=== PATIENT | female | born 1995 | race Caucasian/White ===

== ENCOUNTER 2025-06-11 10:42 | Emergency (ER) | payer BC, SELFPAY ==
--- NOTE | 2025-06-11 10:44 | ED.URI ---
HPI - URI/Sore Throat General Chief Complaint: Upper Respiratory Infection Stated Complaint: sinus infection Time Seen by Provider: 06/11/25 10:44 Source: patient Mode of arrival: ambulatory Limitations: no limitations History of Present Illness HPI Narrative: Patient is a 29-year-old female who presents with 9 days of sinus congestion, sinus pressure, flus nasal drainage, sore throat, cough. Patient has taken DayQuil. Denies any fever, chills, nausea, vomiting, diarrhea. Does not take any allergy medicine daily. Related Data Home Medications ?Medication ?Instructions ?Recorded ?Confirmed ?Last Taken ?Type sertraline 50 mg tablet mg 06/11/25 Unknown History Allergies Allergy/AdvReac Type Severity Reaction Status Date / Time No Known Allergies Allergy Verified 06/11/25 10:46 Review of Systems Review of Systems: All systems reviewed & are unremarkable except as noted in HPI and below Constitutional: Constitutional: Denies chills, Denies fatigue, Denies fever(s), Denies headache(s), Denies malaise and Denies weakness Eyes: Eyes: Denies blurry vision, Denies itchy eyes and Denies loss of vision ENT: Denies otalgia, Denies headache(s), Reports nasal congestion, Reports sinus pain, Reports sinus pressure and Reports sore throat Cardiovascular: Cardiovascular: Denies chest pain, Denies irregular heart rhythm and Denies dyspnea Respiratory: Respiratory: Reports cough and Denies dyspnea Gastrointestinal: Gastrointestinal: Denies abdominal pain, Denies diarrhea, Denies nausea and Denies vomiting Musculoskeletal: Musculoskeletal: Denies back pain, Denies myalgias and Denies arthralgias Integumentary/Breasts: Skin/Breast: Denies pruritus and Denies rash Neurologic: Denies headache(s), Denies loss of vision and Denies weakness Psychiatric: Psychiatric: Reports no additional psychiatric complaints Endocrine: Endocrine: Denies fatigue Allergic/Immunologic: Allergic/Immunologic: Denies itchy eyes PMFSH Comments At time of signature, agree with nursing past medical, surgical, social and family history. There is no relevant family history pertinent to the presenting complaint. Exam Const: General: cooperative, healthy appearing, comfortable, no acute distress and well nourished Nutritional Appearance: well nourished Orientation/consciousness: patient oriented x3 Limitations: no limitations HENMT: Head: normal to inspection, normocephalic and atraumatic Ears: hearing grossly normal bilaterally, external ears normal, TM's normal bilaterally, EAC's normal and no periauricular adenopathy Face/Nose/Sinus: Normal external nose present, Abnormal mucous membranes and turbinates present erythematous bilateral and diffuse, normal facial exam, face symmetric and Facial tenderness on exam of face and sinuses Face and sinus: normal facial exam, face symmetric and sinus tenderness maxillary Mouth: Yes Normal oral and palatal mucosa present, Yes lip normal, Yes tongue normal, Yes Normal salivary glands and ducts present, Yes oropharynx normal and Yes moist mucous membranes Teeth and gingiva: dentition normal Throat: tonsils normal, uvula midline, posterior oropharynx abnormal erythema and postnasal drainage Eyes: General: appearance normal, both eyes and all related structures Alignment and Position: alignment normal and position normal Periorbital: periorbital findings normal Eyelids: eyelids normal Pupils: Equal, round and reactive pupils present Neck: Neck: normal visual inspection, full ROM, no lymphadenopathy and supple Chest: Chest palpation & inspection: normal inspection of the chest and normal palpation of entire chest wall Resp: Effort & Inspection: normal respiratory effort and able to speak in complete sentences Auscultation: clear to auscultation bilaterally, no crackles, no rales, no rhonchi and no wheezes Cardio: Rate: regular rate Rhythm: regular rhythm Heart sounds: S1 normal heart sound present and S2 normal heart sound present GI: Inspection: normal to inspection Skin: General skin exam: normal color and no rashes or lesions noted Neuro: General: patient oriented x3 and moves all extremities Cranial nerves: Yes Equal, round and reactive pupils present Speech: normal speech Gait exam (Neuro): Normal gait present Extrem: General: normal to inspection, full ROM and no edema Psych: Appearance: grossly normal and well kempt Mental Status: mental status grossly normal Speech and movement: Normal speech and movement present Affect: normal affect Attitude: cooperative Thought process: Normal thought process present Course Course Emergency Course: Discharge instructions reviewed with patient, as well as provided in writing per nursing staff. The instructions also include specific and strict return/GO TO THE ER as well as f/u information. All questions have been answered, and the patient deny any further questions with discharge and discharge plan. Portions of this record may have been created with voice recognition software Level of Care: Express Care Visit Vital Signs Vital signs: Reviewed MDM - URI/Sore Throat MDM Narrative Medical decision making narrative: Pt well hydrated appearing, in no respiratory distress, hemodynamically stable. Recommend supportive care. The patient is stable at time of discharge the clinical impression was discussed and the patient was given the opportunity to ask questions, which were addressed as completely as possible given the information available at present. Anticipatory guidance and return to care precautions were discussed and the importance of primary care follow-up was stressed and encouraged. The patient voiced understanding of the plan, indications to return, and the need for follow-up. Exam findings show no acute concerns or changes Patient is appropriate for outpatient treatment and follow-up. Differential diagnosis considered: He virus, strep pharyngitis, allergic rhinitis, upper respiratory tract infection, sinusitis, rhinosinusitis, nasopharyngitis. viral pharyngitis, otitis media, otitis externa, otitis effusion, foreign body, cerumen impaction, viral syndrome, and influenza.? Discharge Plan Discharge Clinical Impression: Sinusitis Qualifiers: Sinusitis location: maxillary Chronicity: acute Recurrence: non-recurrent Qualified Code(s): J01.00 - Acute maxillary sinusitis, unspecified Patient Disposition: Home Condition: Stable Instructions: Sinusitis (ED) Additional Instructions: Take antibiotic as prescribed. Take steroids per package instructions. Use Tessalon Perles as needed for cough. Other symptomatic treatments include: -Alternate Tylenol and Motrin per package directions for fever or pain: Tylenol 650-1000mg by mouth every 4-6 hours. Do not exceed 4000mg in 24 hours. Advil (Ibuprofen) 600 mg by mouth every 6 hours. Do not exceed 2400mg in 24 hours. 8 AM: Tylenol 11 AM: Ibuprofen 2 PM: Tylenol 5 PM: Ibuprofen 8 PM: Tylenol 11 PM: Ibuprofen 2 AM: Tylenol 5 AM: Ibuprofen -Antihistamine medication such as Benadryl at night and Zyrtec/Claritin/Bobbi during the day can help improve symptoms. -Use Flonase twice a day for 5 days then daily to help reduce the inflammation and dry up your sinuses. -You can also use Sudafed or Mucinex. Be sure to drink plenty of water with these medications at least 8 ounces with every dose and it is important to drink 8 to 10 glasses of water per day. Water is a natural decongestant -Eat and drink things that are easy to swallow, like tea or soup, or popsicles. -Oral rinses such as: Salt water gargles and/or may use topical anesthetic (eg. Chloraseptic spray) or lozenges to relieve dryness or throat pain). -Frequent hand washing or hand software engineer kernel is one of the best ways to prevent spread of infection. -Using a vaporizer or humidifier at night will also help thin secretions and help with coughing up phlegm. Call your Primary Care Doctor and make a follow-up appointment in 3 days. If your cough worsens, you develop a fever greater than 103, you develop shaking chills, a fast heartbeat, trouble breathing and/or feel you are are breathing much faster than usual, call your Primary Care Doctor or go to the ER. Patient Language: Kazakh Prescriptions: New benzonatate 100 mg capsule 100 mg PO BID PRN (Reason: cough) Qty: 14 0RF methylprednisolone [Medrol (Pascual)] 4 mg tablets,dose pack See Rx Instructions .ROUTE .COMPLEX Qty: 21 0RF Rx Instructions: orally per package directions fluticasone propionate [Flonase Allergy Relief] 50 mcg/actuation spray,suspension 1 spray intranasal DAILY Qty: 16 0RF Rx Instructions: administer into each nostril amoxicillin-pot clavulanate 875-125 mg tablet 1 tablet PO Q12H 10 Days Qty: 20 0RF No Action sertraline 50 mg tablet Follow-up/Referrals: Krissy,Pia [Other] - 3 Days Stand Alone Forms: Work/School Release IP Time of Disposition: 11:18
[2025-06-11 10:54] VITALS: BP 116/69; PULSE 75; RESP 18; TEMP 36.6; O2SAT 100
--- OUTSIDE RECORDS SUMMARY | 2025-06-11 10:55 | XMS_ITS | Continuity of Care Document ---
Author Organization [facility] Address [address] [place] [address] Phone Care Team Providers Care Beater Room Supervisor Name Role Phone Charity Young MD Unavailable Unavailable Allergies, Adverse Reactions, Alerts Substance Reaction Status Criticality No Known Allergies Active No Inform ation Medications Medication Instructions Dosage Effective Dates (start - stop) Status Comments Zoloft 25 mg tablet take 1 tablet by ora l route every day 25 MG - Active amitriptyline 25 mg tablet take 1 tablet by oral route every day at bedtime 25 MG - Active Procedures Procedure Date DIAST BP < 80 MM HG SYST BP < 130 MM HG ROUTINE VENIPUNCTURE OFFICE/OUTPATIENT VISIT, EST ROUTINE VENIPUNCTURE HEPATIC FUNCTION PANEL ROUTINE VENIPUNCTURE PREV VISIT, NEW, AGE 18-39 Attests To Documenting In EHR Current Me ds Advance Directives Directive Yes / No Effective Date File Name No Information Encounters Encounter Description Practice Location Reason(s) For Visit Diagnoses Date Provider Providers Copied on Encounter [facility], [address], [place], [place], [id number] , [place] tel:[phone] [facility] No Information 2 Hannah Nash. [address] [facility] [address], [place], [place], [id number] , [place]. tel:[phone] [facility], [address], [place], [place], [id number] , [place] [phone] [facility] No Information 2 Hannah Nash. [address], [facility], [place], [place], [id number] , . tel:[phone] OFFICE/OUTPA TIENT VISIT, EST [facility], [address], [place], [place], [id number] , [place] [phone] [facility] follow up (chief complaint)a nxiety (chief complaint) Body mass index (BMI) 29.0-29.9, adultGeneralized anxiety disorder with panic attacksPsychophysio logical insomnia 1 Le Marlena. [address], [facility], [place], [place], [id number] , . tel:[phone] Referring Provider: Charity Young, [address] [facility], [place], [address] . tel:[phone] [facility], [address], [place], [place], [id number] , [place] tel:[phone] [facility] LABS DRAWN (chief complaint) Abnormal finding of blood chemistry, unspecified 1 Le Marlena. [address], [facility], [place], [place], [id number] , . tel:[phone] Referring Provider: Charity Young, [address] [facility] [address], [place], [address] . tel:[phone] PREV VISIT, NEW, AGE 18-39 [facility], [address], [place], [place], [id number] , [place] tel:[phone] [facility] preventive exam (chief complaint)a nxiety (chief complaint) Encounter for general adult medical examination without abnormal findingsBody mass index (BMI) 29.0-29.9, adultGeneralized anxiety disorder with panic attacksPanic disorder [episodic paroxysmal anxiety] Hannah Nash. [address], [address], [place], [place], [id number] , [place]. [phone] Referring Provider: Charitymikey Nunezbibi, [address], [place], [address] . tel:[phone] Family History Family Member Type Diagnosis Age At Onset Brother Problem GERD Brother Problem Anxiety Mother Problem GERD Father Problem malignant neoplasm of lung Mother Problem hypertension Father Problem (finding) Payers Payer name Insurance type Covered green party ID Authoriza tivilma(s) [employer] [id number] Social History Type Description Quantity Date Captured Comments Alcohol Use Details Unknown Caffeine Use Details Unknown Tobacco Use Status No Information Smoking Status No Information Sex Female Chief Complaint And Reason For Visit No Information Reason For Referral Reason For Referral No Information Plan Of Treatment Date Type Action Status Goal Td vaccine. Due on due Goal RADIOTELEGRAPHIST Exam. Due on due Goal Influenza Vaccine. Due on due Goal Tdap. Due on due Goal PAP. Due on due Goal HPV (). Due on due Goal H&P. Due on due Goal Depression scree filiberto. Due on due Goal Document TOB Sta tus\ Cessation Advice. Due on due Goal Depression scree filiberto. Due on due Goal Td vaccine. Due on due Goal HPV (). Due on due Goal H&P. Due on due Goal Document TOB Sta tus\ Cessation Advice. Due on due Goal Influenza Vaccine. Due on Oc due Goal RADIOTELEGRAPHIST Exam. Due on due Goal Tdap. Due on due Goal PAP. Due on due Goal Lifestyle education regardin g diet completed Goal Tdap. Due on due Goal HPV (). Due on due Goal Td vaccine. Due on due Goal Influenza Vaccine. Due on Au due Goal RADIOTELEGRAPHIST Exam. Due on due Goal PAP. Due on due Goal Document TOB Sta tus\ Cessation Advice. Due on due Goal Depression scree filiberto. Due on due Goal H&P. Due on due Goal PAP. Due on due Goal Document TOB Sta tus\ Cessation Advice. Due on due Goal H&P. Due on due Goal HPV (). Due on due Goal Depression scree filiberto. Due on due Goal RADIOTELEGRAPHIST Exam. Due on due Goal Td vaccine. Due on due Goal Tdap. Due on due Goal Influenza Vaccine. Due on due Goal Lifestyle education regardin g diet completed Patient Education amitriptyline 25 mg tab let completed Future Order: Lab Order HIV -1/0 /2 AG/AB WITH REFLEX (4th generation) ([id number]), Scheduled for: , Collected on: , Scheduled for: Sent Future Order: Lab Order HEPATITI S C AB ([id number]), Scheduled for: , Collected on: , Scheduled for: Sent Future Order: Lab Order HEPATITI S B SURFACE ANTIGEN ([id number]), Scheduled for: , Collected on: , Scheduled for: Sent Future Order: Lab Order HSV 1/2 PCR(NON BLOOD/NON CSF) ([id number]), Scheduled for: , Collected on: , Scheduled for: Sent Future Order: Lab Order HIV -1/0 /2 AG/AB WITH REFLEX ([id number]), Scheduled for: Ordered Future Order: Lab Order HEPATITI S C AB ([id number]), Scheduled for: Ordered Future Order: Lab Order HEPATITI S B SURFACE ANTIGEN ([id number]), Scheduled for: Ordered Future Order: Lab Order HSV 1/2 PCR(NON BLOOD/NON CSF) ([id number]), Scheduled for: Ordered Future Order: Lab Order COMPREHE NSIVE METABOLIC PANEL ([id number]), Collected on: , Sent on: Sent Future Order: Lab Order THYROXIN E FREE (T4) ([id number]), Collected on: , Sent on: Sent Future Order: Lab Order THYROID STIMULATING HORMONE (TSH) ([id number]), Collected on: , Sent on: Sent Future Order: Lab Order VITAMIN D 25-HYDROXY ([id number]), Collected on: , Sent on: Sent Future Order: Lab Order CBC w DI FF ([id number]), Collected on: , Sent on: Sent History Of Present Illness Encounter Date Complaint History Of Prese nt Illness anxiety (comments) Last visit we tried increasing Zoloft from 100 mg to 25 mg daily as patient was experiencing a lot of fatigue on the higher dose of Zoloft did not feel she needed it. She also feels Zoloft caused weight gain, she experienced 30lbs of weight gain since first starting this medication. Today she reports she has noticed a worsening of her anxiety since decreasing this dose of Zoloft. She states she has a very hard time falling asleep at night which she feels contributes to her symptoms. 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 She does follow regularly with a counselor. anxiety This is a follow up visit. There is continuation of initial symptoms and worsening of previously reported symptoms continuation of initial symptoms and worsening of previously reported symptoms. The patient presents with anxious/fearful thoughts difficulty concentrating, difficulty falling asleep, difficulty staying asleep, excessive worry, racing thoughts and restlessness, anxious/fearful thoughts, difficulty concentrating, difficulty falling asleep, difficulty staying asleep, excessive worry, racing thoughts and restlessness but denies depressed mood, fatigue, increased energy, hallucinations,decreased libido, loss of appetite or poor judgment. The patient's risk factors include The patient's risk factors include family history of depression. family history of depression. The anxiety is aggravated by conflict or stress. The anxiety is associated with headache and irritability. The patient denies any chronic pain nausea, sweating, urinary frequency, vomiting and weight gain, chronic pain, nausea, sweating, urinary frequency, vomiting and weight gain. follow up Patient presents for 1 month follow appointment for anxiety. LABS DRAWN HEPATIC FUNCTION PANEL preventive exam Her menses is re gular. Negative for dysmenorrhea and menorrhagia. Negative for: breast discharge, breast lump(s) and breast pain. Positive for: breast self exam.Negative for Hormone replacement therapy. Menopausal symptoms negative for: hot flashes, insomnia, night sweats and vaginal dryness. Pertinent negatives include abnormal bleeding (hematology), abnormal vaginal bleeding, anxiety, decreased libido, depression, difficulty falling sleep, dyspareunia, history of infertility, nocturia, sexual dysfunction, sleep disturbances, urinary incontinence, urinary urgency, vaginal discharge and vaginal itching. She does not take calcium. She does not take Vitamin D. She does take multivitamins daily. She does not take Folic acid. The patient does not use tobacco. She does not drink alcohol. anxiety This is an initi al visit. The patient does not present with anxious/fearful thoughts, difficulty falling asleep ordecreased libido. The patient's risk factors include family history of depression and relationship problems. The anxiety is associated with irritability. The patient denies any chronic pain and headache. Functional Status Date Functional Assessmen t No Information Instructions Date Instruction Additional Infor ngozi Offered reassurance and supportShe follows with a counselor, feels a lot of her anxiety and stress is due to her job as an ICU nurseHas worsening of symptoms with decreasing Zoloft from 100mg to 25mg dailyDiscussed options for medication management including switching to a different type of antidepressant or adding another medication which can potentially help with sleepAfter discussion patient would like to try amitriptyline 25mg nightly to see if this helps with anxiety symptoms and sleepShe will follow up in 1 month for recheck after starting amitriptyline Related to Generalized anxiety disorder with panic attacks Start amitriptyline 25mg nightly; discussed potential side effects with patient and patient education handout given to patient todayEncouraged healthy sleep hygiene habitsFollow up in 1 month for recheck Related to Psychophysiological insomnia Lifestyle education regarding di et Related to Body mass index [BMI] 29.0-29.9, adult she wants to go back on zoloft 25 mg as she tried the 100 and the 50mg and it makes her extremely tired so will go ahead and start her on xoloft 25 mg daily and advised her to contact the office if there is any worsening of symptoms Related to Generalized anxiety disorder with panic attacks Lifestyle education regarding di et Related to Body mass index [BMI] 29.0-29.9, adult Assessments Type Assessment Date No Information Patient Care Teams Name Effective Dates (start - stop) Status Members No Information
== END 2025-06-11 11:21 | disposition home or self-care (01) ==
PROVIDERS: Emergency Provider Nurse Practitioner Family
DX: J01.00 Acute maxillary sinusitis, unspecified (principal)
CPT/HCPCS: 99203; G0463

== ENCOUNTER 2025-07-12 08:32 | Emergency (ER) | payer BC, SELFPAY ==
--- NOTE | 2025-07-12 08:35 | ED.RECABL ---
HPI - Recheck/Abnormal Lab/Rx General Chief Complaint: Recheck/Abnormal Lab/Rx Stated Complaint: Zoloft Withdrawals Time Seen by Provider: 07/12/25 08:34 Source: patient Mode of arrival: ambulatory Limitations: no limitations History of Present Illness HPI narrative: Abiola is a 29-year-old female patient presenting to the clinic today for medication refill of her sertraline. She reports she has tried to taper down her sertraline to stop taking it. States she has done 25 mg for 1 week then 12.5 mg for 1 week and then stopped and now she is having symptoms of withdrawal. She reports she is having brain zaps, brain fog, feels as though she is floating, dizziness, and nausea. Contacted her PCP was prescribed this medication and they are unable to further evaluate her as she has recently moved from [place] to the [place]. States she does not feel as though she needs the medication and she wants to try to become . Has not followed up with a PCP in [place] yet. Has an appointment scheduled. She denies any body aches, chills, shortness of breath, chest pain, URI symptoms, or sore throat. Related Data Home Medications ?Medication ?Instructions ?Recorded ?Confirmed ?Last Taken ?Type sertraline 50 mg tablet mg 06/11/25 Unknown History Allergies Allergy/AdvReac Type Severity Reaction Status Date / Time No Known Allergies Allergy Verified 07/12/25 08:40 Review of Systems Review of Systems: Pertinent positives per HPI. Patient denies any fever, chills, rash, headache, visual changes, dizziness, cough, runny nose, sore throat, shortness of breath, chest pain, palpitations, vomiting, diarrhea, constipation, abdominal pain, or any urinary issues. PMFSH Comments At the time of my signature, I reviewed and agree with the nursing past medical, surgical, social, and family history. There is no relevant family history pertinent to the patient complaint. Exam Narrative: General: Well-developed, well nourished, in no apparent distress, tearful Head: Normocephalic, atraumatic Eyes: Pupils equally round and reactive to light bilaterally, EOM intact, sclera and conjunctive clear, no discharge, lids normal Ears: TMs intact and clear, ear canals clear, no drainage, grossly hearing normal. Nose: Nares patent, no discharge, no inflammation, no sinus tenderness. Mouth: Oropharynx without lesions or masses, good dentition, MMM. Tongue midline, even rise and fall of uvula Neck: Supple, trachea midline, no enlargement of anterior or posterior cervical nodes, no thyroid masses or goiter palpable. Cardio: Regular rate and rhythm, s1 and s2 normal, no murmur appreciated. Resp: Clear to auscultation bilaterally anteriorly and posteriorly, no rhonchi, rales, wheezing or rubs Musculoskeletal: No deformity, non-tender to palpation, grossly normal range of motion, muscle strength strong and equal, peripheral pulse strong, no edema, no cyanosis, normal gait and station Neuro: Alert and oriented x4 with normal speech, no focal deficits, cranial nerves I through XII intact, muscle strength 5 out of 5, sensation intact bilaterally, negative Romberg test Course Course Emergency Course: Portions of this record may have been created with voice recognition software. Level of Care: Express Care Visit Vital Signs Vital signs: Vital Signs Temperature 36.5 C 07/12/25 08:40 Pulse Rate 87 07/12/25 08:40 Respiratory Rate 18 07/12/25 08:40 Blood Pressure 110/77 07/12/25 08:40 Pulse Oximetry 100 07/12/25 08:40 Oxygen Delivery Room Air 07/12/25 08:40 Temperature 36.5 C 07/12/25 08:40 Pulse Rate 87 07/12/25 08:40 Respiratory Rate 18 07/12/25 08:40 Blood Pressure 110/77 07/12/25 08:40 Pulse Oximetry 100 07/12/25 08:40 Oxygen Delivery Room Air 07/12/25 08:40 Vital signs reviewed MDM - Recheck/Abnormal Lab/Rx MDM Narrative Medical decision making narrative: At the time of visit patient is resting comfortably on the exam table. Patient appears to be nontoxic. Patient is here for medication refill of her sertraline. She reports she has tried to taper down her sertraline to stop taking it. States she has done 25 mg for 1 week then 12.5 mg for 1 week and then stopped and now she is having symptoms of withdrawal. She reports she is having brain zaps, brain fog, feels as though she is floating, dizziness, and nausea. Contacted her PCP was prescribed this medication and they are unable to further evaluate her as she has recently moved from [place] to the [place]. She states as though she feels as though she does not need the medication at this time and she would like to become . Has not followed up with a PCP in [place] yet. Has an appointment scheduled. She denies any body aches, chills, shortness of breath, chest pain, URI symptoms, or sore throat. On exam patient has normal neuro exam. No URI symptoms. Plan: I suspect patient is having SSRI sertraline withdrawal. Will have the patient start back up on the sertraline taking 12.5 mg x 1 week then decreasing to 6.25 mg x 1 week and if needed she can decreased to 3.125 mg per week and then discontinue. She should follow up with her PCP as soon as possible. If her symptoms worsen recommend going to the emergency room. Supportive measures were discussed with the patient and they voiced understanding discharge instructions and agrees to treatment plan. Return precautions reviewed Differential Diagnosis Differential diagnosis: Likely encounter for medication refill (SSRI withdrawal) Discharge Plan Discharge Clinical Impression: Encounter for medication refill Acute drug withdrawal syndrome Qualifiers: Complication of substance-induced condition: with unspecified complication Qualified Code(s): F19.939 - Other psychoactive substance use, unspecified with withdrawal, unspecified Patient Disposition: Home Condition: Stable Instructions: Antibiotic Form, Medicine Refill (ED) Additional Instructions: Takes Zoloft as prescribed-taper dose-take 12.5 mg (0.5tab) x1 week then decrease to 6.25mg (0.25 tab) x 1 week then may decrease to 3.125mg (0.125 tab) x 1 week then discontinue. Follow-up with PCP as soon as possible Go to the emergency room if you develop worsening symptoms. Patient Language: Greenlandic Prescriptions: New sertraline 25 mg tablet 12.5 mg PO DAILY 21 Days Qty: 11 0RF Rx Instructions: Taper dose as directed- take 12.5 mg (0.5 tab) x 1 week then take 6.25mg (0.25tab)x 1 week the may take 3.125mg (0.125 tab) x 1 week and discontinue No Action sertraline 50 mg tablet Follow-up/Referrals: UNKNOWN,DOCTOR [Non-Staff] Time of Disposition: 09:04 Quality NIHSS Nursing Documentation ED NIHSS nursing documentation: reviewed/agree
--- OUTSIDE RECORDS SUMMARY | 2025-07-12 08:36 | XMS_ITS | Clinical Summary ---
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
[2025-07-12 08:40] VITALS: BP 110/77; PULSE 87; RESP 18; TEMP 36.5; O2SAT 100
== END 2025-07-12 09:11 | disposition home or self-care (01) ==
PROVIDERS: Emergency Provider Nurse Practitioner Family
DX: F19.939 Other psychoactive substance use, unspecified with withdrawal, unspecified (principal); Z76.0 Encounter for issue of repeat prescription
CPT/HCPCS: 99213; G0463